=== PATIENT | male | born 1965 | race Caucasian/White ===

== ENCOUNTER 2020-10-26 13:14 | Day surgery (SDC) | payer BC ==
[~2020-10-26 13:14] MED LIST: Bacitracin Oint 1 GM U/D Packet ONE; Sodium Chloride 0.9% 1,000 ML IV SCH; ceFAZolin 2 GM in Sodium Chloride 0.9% 50 ML IV ONE
[2020-10-26] MEDS ORDERED: metroNIDAZOLE/Normal Saline 500 MG in Premix Bag 1 BAG IV ONE (13:30)
[2020-10-26] MEDS ORDERED: ceFAZolin 2 GM in Premix Bag 1 BAG IV ONE (13:30)
[2020-10-26] MEDS ORDERED: Midazolam 1 MG/ML 2 ML SDV ONE (13:33)
[2020-10-26] MEDS ORDERED: fentaNYL 100 MCG/2 ML SDV ONE (13:33)
[2020-10-26] MEDS ORDERED: Propofol 200 MG/20 ML SDV ONE ×2 (13:33→14:25)
[2020-10-26] MEDS ORDERED: Bupivacaine 0.5% 50 ML MDV ONE (14:10)
[2020-10-26] MEDS ORDERED: Lidocaine 1% with EPINEPHrine 1:100,000 50 ML MDV ONE (14:10)
--- NOTE | 2020-10-27 09:59 | OR ---
DATE OF PROCEDURE: 10/26/2020 SURGEON: Alber Giraldo MD PROCEDURE: Incision and drainage of perirectal abscess. FINDINGS: Perirectal abscess. COMPLICATIONS: None. 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 ANESTHETIC: MAC/local. RISKS: Risks, benefits, alternatives, and limitations including but not limited to infection, bleeding, perforation of the rectum, sepsis, Marian gangrene, and other risks not listed here were explained to the patient. They wished to proceed. PROCEDURE IN DETAIL: The patient was placed in a prone position. The area which had been identified by the patient preoperatively was anesthetized with 1% lidocaine. A single raj was created in the skin of approximately 5 mm in size. Pus was noted to be coming from this. This was enlarged with a Arlin clamp. This was cultured. This was irrigated with approximately 500 mL of irrigation. A 1/4-inch iodoform packing was then placed within this. Dressings were applied. The patient tolerated procedure well. Alber Giraldo MD /[id number]
== END 2020-10-26 16:15 | disposition home or self-care (01) ==
LOC: JP.SDS 13:14
PROVIDERS: ATTEND Surgery
DX: K61.1 Rectal abscess (principal); I10 Essential (primary) hypertension; K21.9 Gastro-esophageal reflux disease without esophagitis
CPT/HCPCS: 36415; 46040; 80048; 85027; 87070; 87075; 87077; 87205; J0690; J2250; J2704; J3010; J3490; J7030